=== PATIENT | female | born 1990 | race African-American/Black ===

== ENCOUNTER 2025-01-25 11:50 | Emergency (ER) | payer SELFPAY | END 2025-01-25 13:17 | disposition left against medical advice (07) | LOC: MW.ED 11:50 | DX: Z53.21 Procedure and treatment not carried out due to patient leaving prior to being seen by health care provider (principal) ==

== ENCOUNTER 2025-01-26 20:05 | Emergency (ER) | payer SELFPAY ==
[2025-01-26] MEDS ORDERED: Sodium Chloride 0.9% 2.5 ML Syringe FLUSH PRN (20:20)
[2025-01-26] MEDS ORDERED: Sodium Chloride 0.9% 10 ML Syringe FLUSH PRN (20:20)
[2025-01-26] MEDS: Ondansetron 4 MG/2 ML SDV IVPUSH STA (20:49)
[2025-01-26] MEDS: Sodium Chloride 0.9% 1,000 ML IV STA (20:49)
[2025-01-26 21:37] LABS: APPEARANCE,URINE SLT CLOUDY; BILIRUBIN,URINE NEGATIVE (NEGATIVE); COLOR,URINE YELLOW; GLUCOSE,URINE NEGATIVE (NEGATIVE); KETONES,URINE NEGATIVE (NEGATIVE); LEUKOCYTE ESTERASE,URINE NEGATIVE (NEGATIVE); NITRITE,URINE NEGATIVE (NEGATIVE); OCCULT BLOOD,URINE NEGATIVE (NEGATIVE); PH,URINE 6.5 (5.0-8.0); PROTEIN,URINE NEGATIVE (NEGATIVE); UROBILINOGEN,URINE 0.2 EU/dL (<2.0)
== END 2025-01-26 22:04 | disposition home or self-care (01) ==
LOC: MW.ED 20:05
DX: O99.612 Diseases of the digestive system complicating pregnancy, second trimester (principal); R10.30 Lower abdominal pain, unspecified; Z79.899 Other long term (current) drug therapy
CPT/HCPCS: 36415; 76810; 81003; 87428; 96361; 96374; 99284; J2405; J7030; 99283

== ENCOUNTER 2025-06-03 18:00 | Emergency (ER) | payer MEDICAID | END 2025-06-03 18:30 | disposition home or self-care (01) | LOC: MW.ED 18:00 | DX: O26.82 Pregnancy related peripheral neuritis (principal); Z3A.36 36 weeks gestation of pregnancy; Z79.899 Other long term (current) drug therapy | CPT/HCPCS: 99282; 99283 ==

== ENCOUNTER 2025-06-20 16:47 | Emergency (ER) | payer MEDICAID | END 2025-06-20 17:59 | disposition home or self-care (01) | LOC: MW.ED 16:47 | DX: M79.18 Myalgia, other site (principal); Z79.899 Other long term (current) drug therapy; Z75.3 Unavailability and inaccessibility of health-care facilities | CPT/HCPCS: 99282; 99283 ==

== ENCOUNTER 2025-07-08 22:10 | Emergency (ER) | payer MEDICAID ==
[2025-07-08] MEDS ORDERED: Sodium Chloride 0.9% 2.5 ML Syringe FLUSH PRN (22:49)
[2025-07-08] MEDS ORDERED: Sodium Chloride 0.9% 10 ML Syringe FLUSH PRN (22:49)
[2025-07-08 23:14] LABS: BASOPHILS ABSOLUTE AUTO 0.02 K/uL (0.00-0.20); BASOPHILS PERCENT AUTO 0.4 % (0.0-1.0); EOSINOPHILS ABSOLUTE AUTO 0.05 K/uL (0.00-0.45); EOSINOPHILS PERCENT AUTO 0.9 % (0.0-6.0); IMMATURE GRAN ABSOLUTE AUTO 0.01 K/uL (0.00-0.05); IMMATURE GRAN PERCENT AUTO 0.2 % (0.0-0.4); LYMPHOCYTES ABSOLUTE AUTO 1.41 K/uL (1.00-4.80); LYMPHOCYTES PERCENT AUTO 24.8 % (24.0-44.0); MEAN PLATELET VOLUME 10.2 fL (9.4-12.3); MONOCYTES ABSOLUTE AUTO 0.58 K/uL (0.00-0.80); MONOCYTES PERCENT AUTO 10.2 % (0.0-8.0); NEUTROPHILS ABSOLUTE AUTO 3.62 K/uL (1.80-7.70); NEUTROPHILS PERCENT AUTO 63.5 % (41.0-71.0); NRBC ABSOLUTE 0.00 K/uL (0.00-0.02); NRBC PERCENT 0.0 /100WBC (0.0-0.2); PLATELET COUNT,PLT 252 K/uL (150-400); RED BLOOD CELL COUNT 3.41 M/uL (4.10-5.30); WHITE BLOOD CELL COUNT,WBC 5.69 K/uL (3.9-11.3)
[2025-07-08] MEDS: Iopamidol 755 MG/ML 500 ML Multipack Bottle IVPUSH ONE (23:30)
[2025-07-08 23:38] LABS: A/G RATIO 0.8 (0.9-1.6); ALANINE AMINOTRANSFERASE,ALT 33.0 IU/L (14-63); ASPARTATE AMNIOTRANSFERASE,AST 23.0 IU/L (15-37); BILIRUBIN TOTAL 0.7 mg/dL (0.2-1.0); BLOOD UREA NITROGEN,BUN 10.0 mg/dL (7.0-18.0); CARBON DIOXIDE,CO2 24.1 mmol/L (21.0-32.0); CHLORIDE,CL 104.0 mmol/L (98-107); CREATININE 0.6 mg/dL (0.6-1.0); EST CRCL DRUG DOSING (CG) 121.35 mL/min; GLUCOSE RANDOM 83.0 mg/dL (74-106); POTASSIUM,K 3.8 mmol/L (3.5-5.1); PROTEIN TOTAL,TP 6.8 g/dL (6.4-8.2); SODIUM,NA 141.0 mmol/L (136-145)
[2025-07-08 23:40] LABS: ESTIMATED GFR 119.0 mL/min (>60)
[2025-07-09 00:04] LABS: GLUCOSE,URINE NEGATIVE (NEGATIVE); OCCULT BLOOD,URINE MODERATE (NEGATIVE)
[2025-07-09 00:08] LABS: APPEARANCE,URINE HAZY
[2025-07-09 00:19] LABS: EPITHELIAL CELLS,URINE MODERATE (NONE-FEW); YEAST,URINE RARE
[2025-07-09] MEDS: hydrALAZINE 20 MG/ML SDV IVPUSH ONE (02:38)
== END 2025-07-09 03:39 | disposition home or self-care (01) ==
LOC: MW.ED 22:10
DX: R10.31 Right lower quadrant pain (principal); R10.32 Left lower quadrant pain; Z79.899 Other long term (current) drug therapy
CPT/HCPCS: 36415; 74177; 76856; 80053; 81001; 83690; 85025; 96360; 99284; A9270; J7030; Q9967; 99283